=== PATIENT | male | born 1975 | race Caucasian/White ===

== ENCOUNTER → 2017-07-01 | Outpatient (CLI) | payer OTHER | LOC: COL.RAD 07:15 | DX: M72.2 Plantar fascial fibromatosis (principal) ==

== ENCOUNTER → 2019-03-19 | Outpatient (CLI) | payer OTHER | LOC: COL.RAD 08:45 | DX: M75.111 Incomplete rotator cuff tear or rupture of right shoulder, not specified as traumatic (principal); Z98.890 Other specified postprocedural states | CPT/HCPCS: A9585; Q9967 ==